=== PATIENT | female | born 1945 | race Caucasian/White ===

== ENCOUNTER 2017-11-21 07:59 | Outpatient (CLI) | payer MEDICARE ==
--- NOTE | 2017-11-21 11:04 | PET ---
PET SCAN DEMENTIA PET BRAIN SCAN NONCONTRAST HEAD CT: HISTORY: Alzheimer's disease with early onset. RADIOPHARMACEUTICAL: 7.08 mCi [id number]. FINDINGS: There is mild reduced activity localizing to the bilateral parietotemporal lobes. This is symmetric i n appearance. Noncontrast head CT imaging revealed no evidence of acute intracranial hemorrhage, mass effect, midli ne shift, or significant ventriculomegaly. IMPRESSION: Mild, fairly symmetric reduced metabolic activity localizing to the parietotemporal lobes bilaterally . POS: [facility]
== END 2017-11-21 08:00 | disposition home or self-care (01) ==
LOC: PET 07:59
PROVIDERS: ATTEND Psychiatry & Neurology Neurology
DX: G30.0 Alzheimer's disease with early onset (principal); R90.89 Other abnormal findings on diagnostic imaging of central nervous system
CPT/HCPCS: 78608; A9552

== ENCOUNTER 2019-04-26 16:32 | Emergency (ER) | payer MEDICARE ==
[2019-04-26 17:31] LABS: #Basophils 0.1 thou/uL (0.0-0.2); #Eosinphils 0.2 thou/uL (0.0-0.7); #Lymphocytes 2.6 thou/uL (1.20-3.40); #Monocytes 0.9 thou/uL (0.11-0.59); #Neutrophils 4.4 thou/uL (1.40-6.50); %Basophils 1.4 % (0.0-1.0); %Eosinophils 2.2 % (0.0-10.0); %Lymphocytes 31.1 % (21.0-51.0); %Monocytes 11.5 % (0.0-10.0); %Neutrophils 53.9 % (42.0-75.0); Hemoglobin 14.7 g/dL (12.0-16.0); Mean Corpuscular HGB CONC 32.7 g/dL (32.0-36.0); Mean Corpuscular Hemoglobin 31.3 pg (27.0-31.0); Mean Corpuscular Volume 95.7 fL (78.0-98.0); Mean Platelet Volume 7.9 fL (7.4-10.4); Platelet Count 202 thou/uL (130-400); RBC Distribution Width 12.3 % (11.5-14.5); Red Blood Cell (RBC) Count 4.71 mill/uL (4.20-5.40); White Blood Cell (WBC) Count 8.2 thou/uL (4.8-10.8)
[2019-04-26 17:54] LABS: ALT (SGPT) 15 U/L (8-55); AST (SGOT) 17 U/L (5-34); Albumin 4.3 g/dL (3.4-4.8); Alkaline Phosphatase 110 U/L (40-110); Anion Gap 12 mmol/L (10-20); BUN (Urea Nitrogen) 28 mg/dL (9.8-20.1); Bilirubin, Total 0.3 mg/dL (0.2-1.2); Calc. Creatinine Clearance 0 mL/min (70-130); Carbon Dioxide 29 mmol/L (23-31); Chloride 102 mmol/L (98-107); Estimated GFR-MDRD 70; Globulin 2.7 g/dL (2.4-3.5); Glucose 93 mg/dL (83-110); Potassium 3.9 mmol/L (3.5-5.1); Sodium 139 mmol/L (136-145)
[2019-04-26 17:55] LABS: Acetaminophen Less than 6.0 mcg/mL (10.0-30.0); Alcohol Less than 10 mg/dL (Less than 10); Salicylate Less than 8.0 mg/dL (15.0-30.0)
[2019-04-26 18:26] LABS: Amphetamine Not Detected (NotDetected); Barbiturates Screen Not Detected (NotDetected); Benzodiazepine Screen Not Detected (NotDetected); Cocaine Metabolite Screen Not Detected (NotDetected); Medtox Control Line Valid? VALID (VALID); Medtox Reader # READER 4; Methadone Not Detected (NotDetected); Methamphetamine Not Detected (NotDetected); Opiate Screen Not Detected (NotDetected); Oxycodone Screen Not Detected (NotDetected); Phencyclidine (PCP) Not Detected (NotDetected); THC/Cannabinoid Screen Not Detected (NotDetected); Tricyclic Screen Detected (NotDetected)
[2019-04-26 18:31] LABS: Bacteria/HPF None Seen HPF (None Seen); Bilirubin Negative (Negative); Blood, Urine 1+ (Negative); Clarity Clear (Clear); Glucose, Urine (Dipstick) Normal (Negative); Leukocyte 25 Leu/uL (Negative); Mucous/LPF 1+ LPF (<2+); Nitrite Negative (Negative); Protein, Urine (Dipstick) 20 mg/dL (Neg-Trace); Squamous Epithelial 0-3 HPF (0-3)
== END 2019-04-26 18:46 | disposition home or self-care (01) ==
LOC: ERS 16:32
DX: T14.91XA Suicide attempt, initial encounter (principal); G30.9 Alzheimer's disease, unspecified; E07.9 Disorder of thyroid, unspecified; F32.9 Major depressive disorder, single episode, unspecified; Z79.899 Other long term (current) drug therapy; X83.8XXA Intentional self-harm by other specified means, initial encounter
CPT/HCPCS: 36415; 51701; 80053; 80306; 80307; 81003; 81015; 84443; 85025; 93005; A4353